=== PATIENT | female | born 1930 | race Caucasian/White ===

== ENCOUNTER 2017-02-17 07:53 | Inpatient (IN) | payer MEDICARE ==
[~2017-02-17] VITALS: Ht 157.5 cm; Wt 49.9 kg
[~2017-02-17 07:53] MED LIST: ALPR0.255 PO; AMLO5TAB2; ASPI-605; ASPI81TA2 PO; ATOR40TA PO; ATOR80TA; ATOR80TA PO; BENZ-13 PO; CARV6.252 PO; CYAN10006 IJ; DARI7.5T PO; DIGO125T20 PO; DIGO250T PO; ERGO50003 PO; ERGO500047 PO; FURO-144 PO; FURO20TA4; FURO40TA5 PO; METO-302 PO; METO-306 PO; METO25TA6 PO; OMEP20CA10; OMEP20CA10 PO; OMEP40CA37 PO; OXYB10TA4 PO; OXYB5TAB11 PO; POTA-10 PO; POTA10CA14; TRIA1CAP6 PO; TRIA50CA PO; ZOLP5TAB7 PO
--- NOTE | 2017-02-17 07:55 | NUR ---
Bibra from home due to sob. Patient is aao4, appears in no acute distress, respiration even and unlabored. Patient arrived with o2 via nc. Patient denies chest pain. Skin is warm to touch and non diaphoretic. Afebrile at this time, vss. Gowned and placed pt on tele monitor. Will cont to monitor
[2017-02-17 08:35] LABS: BASOPHILS % (AUTO) 0.2 % (0.0-2.0); EOSINOPHILS # (AUTO) 0.2 /CMM (0.0-0.7); EOSINOPHILS % (AUTO) 2.4 % (0.0-6.0); HEMATOCRIT 32 % (33-45); HEMOGLOBIN 10.4 g/dL (11.5-14.8); LYMPHOCYTES # (AUTO) 1.4 /CMM (0.8-4.8); LYMPHOCYTES % (AUTO) 14.1 % (20.0-44.0); MEAN CORPUSCULAR HEMOGLOBIN 26 PG (26.0-33.0); MEAN CORPUSCULAR HGB CONC 32 g/dl (31.0-36.0); MEAN CORPUSCULAR VOLUME 82 fL (82-100); MONOCYTES # (AUTO) 0.5 /CMM (0.1-1.30); MONOCYTES % (AUTO) 4.8 % (2.0-12.0); NEUTROPHILS # (AUTO) 7.8 /CMM (1.8-8.9); NEUTROPHILS % (AUTO) 78.5 % (43.0-81.0); PLATELET COUNT (AUTO) 279 /CMM (150-450); RED BLOOD CELL COUNT(AUTO) 3.94 MIL/uL (4.0-5.2)
[2017-02-17 08:44] LABS: CREATININE 0.9 mg/dL (0.6-1.3); POTASSIUM 3.5 mmol/L (3.5-5.1)
[2017-02-17 08:52] LABS: TROPONIN I 0.026 ng/mL (0.00-0.056)
[2017-02-17 08:57] LABS: ALBUMIN 3.2 g/dL (3.4-5.0); BILIRUBIN,DIRECT 0.1 mg/dL (0.0-0.2); BILIRUBIN,TOTAL 0.3 mg/dL (0.2-1.0); TOTAL PROTEIN, SERUM 6.7 g/dL (6.4-8.2)
[2017-02-17] MEDS ORDERED: DIGO250T PO (08:58)
[2017-02-17] MEDS ORDERED: METO-302 PO (08:58)
[2017-02-17] MEDS ORDERED: ALPR0.255 PO (08:58)
[2017-02-17] MEDS ORDERED: ASPI-991 PO (08:58)
[2017-02-17] MEDS ORDERED: FUROSEMIDE 20 MG/2 ML VIAL IV ONE (09:00)
[2017-02-17 09:03] LABS: INR 0.94 (0.87-1.13)
[2017-02-17] MEDS ORDERED: FUROSEMIDE 20 MG/2 ML VIAL ONE (09:03)
--- NOTE | 2017-02-17 10:20 | NUR ---
Report given to nurse Margarita for continuity of care
--- NOTE | 2017-02-17 10:22 | NUR ---
patient transported to [address] [place] [address]
[2017-02-17] MEDS ORDERED: HYDROCODONE/APAP 5/325MG 1 EACH TABLET PO PRN ×2 (10:30→10:45)
[2017-02-17] MEDS ORDERED: ENOXAPARIN SODIUM 30 MG/0.3 ML DISP.SYRIN SQ SCH (10:30)
[2017-02-17] MEDS ORDERED: FUROSEMIDE 40 MG/4 ML VIAL IV SCH (10:30)
[2017-02-17] MEDS ORDERED: DIGOXIN 0.25 MG TABLET PO SCH ×2 (10:30→15:19)
[2017-02-17] MEDS ORDERED: ONDANSETRON HCL/PF 4 MG/2 ML VIAL IVP PRN ×2 (10:30→10:45)
[2017-02-17] MEDS ORDERED: METOPROLOL SUCCINATE 25 MG TAB.SR.24H PO SCH (10:30)
[2017-02-17] MEDS ORDERED: ACETAMINOPHEN 325 MG TABLET PO PRN (10:30)
[2017-02-17] MEDS ORDERED: MAG HYDROX/AL HYDROX/SIMETH 30 ML UDC PO PRN ×2 (10:30→10:45)
[2017-02-17] MEDS ORDERED: ZOLPIDEM TARTRATE 5 MG TABLET PO PRN (10:30)
[2017-02-17] MEDS ORDERED: PANTOPRAZOLE 40 MG TABLET.DR PO SCH (10:30)
[2017-02-17] MEDS ORDERED: Z GUARD REMEDY 2 OZ OINT TP PRN ×2 (10:30→10:45)
[2017-02-17] MEDS ORDERED: ASPIRIN EC 81 MG TABLET.DR PO SCH (10:30)
[2017-02-17] MEDS ORDERED: MAGNESIUM HYDROXIDE 30 ML UDC PO PRN ×2 (10:30→10:45)
[2017-02-17] MEDS ORDERED: OXYBUTYNIN CHLORIDE 5 MG TABLET PO SCH (10:30)
[2017-02-17] MEDS ORDERED: ALPRAZOLAM 0.25 MG TABLET PO SCH (10:30)
--- NOTE | 2017-02-17 10:49 | NUR ---
MS RN RECEIVED ON BED, AWAKE,ALERT,ORIENTED X3,NOT IN ANY FORM OF DISTRESS, CAME IN FROM ER W/ DX OF SOB,DENIES PAIN, WAS SEEN BY DR. BEE AT ER W/ ORDERS, HEALTHCARE MANAGEMENT CONSULTANT AT BEDSIDE,WILL MONITOR PATIENT'S CONDITION.
[2017-02-17 11:15] VITALS: BP 146/70
[2017-02-17 12:00] VITALS: BP 146/70
[2017-02-17] MEDS: ACETAMINOPHEN 325 MG TABLET PO PRN (13:20)
[2017-02-17] MEDS: ENOXAPARIN SODIUM 30 MG/0.3 ML DISP.SYRIN SQ SCH (13:21)
--- NOTE | 2017-02-17 15:00 | NUR ---
MS RN DIGOXIN HELD DUE TO HR LOWER THAN 60.
--- NOTE | 2017-02-17 15:28 | NUR ---
spoke with son Clint, and was unsure if patient was consulted by a neurologist or neuro surgeon. Called Dr. David Abdi's office and commercial front load operator personal was able to look into her file and verified that patient was seen by a neurologist post hospital discharge back in October 2016.
[2017-02-17 16:00] VITALS: BP 130/66
--- NOTE | 2017-02-17 17:00 | NUR ---
MS RN DUE MEDS GIVEN,TOLERATED WELL.
--- NOTE | 2017-02-17 18:28 | NUR ---
MS RN ON BED,NO DISTRESS NOTED,ALL NEEDS ATTENDED.
--- NOTE | 2017-02-17 20:11 | NUR ---
TELE/RN PATIENT AWAKE, ALERT, ORIENTED, COMFORTABLE, NO C/O PAIN, NO DISTRESS/SOB NOTED, WILL MONITOR.
[2017-02-17 20:24] VITALS: BP 137/72
[2017-02-17] MEDS: ZOLPIDEM TARTRATE 5 MG TABLET PO PRN (22:05)
--- NOTE | 2017-02-17 23:10 | NUR ---
TELE/RN PATIENT IS SLEEPING AT THIS TIME, APPEAR COMFORTABLE, BREATHING EVEN AND UNLABORED, CALL LIGHT IN REACH. WILL CONTINUE TO MONITOR.
[2017-02-18] VITALS (8 sets, daily range): BP systolic 120–153; BP diastolic 61–81
--- NOTE | 2017-02-18 | NUR ---
TELE/RN DR. IL WAS MADE AWARE ABOUT THE 2.[address] LI HE WILL ORDER CARDIOLOGY CONSULT FOR A.M.
[2017-02-18] MEDS: ACETAMINOPHEN 325 MG TABLET PO PRN ×2 (01:44→22:34)
--- NOTE | 2017-02-18 06:20 | NUR ---
TELE/RN PATIENT IS SLEEPING, AROUSABLE, APPEAR COMFORTABLE, ALL NEEDS ATTENDED AT THIS TIME. WILL CONTINUE TO MONITOR.
--- NOTE | 2017-02-18 08:00 | NUR ---
MS RN NOTES PATIENT IN BED RESTING NO SOB OR ACUTE DISTRESS NOTED. IV INTACT PATENT. BED IN LOW LOCKED POSITION. CALL LIGHT WITHIN REACH. WILL CONTINUE TO MONITOR.
[2017-02-18] MEDS: ALPRAZOLAM 0.25 MG TABLET PO SCH (08:18)
[2017-02-18] MEDS: OXYBUTYNIN CHLORIDE 5 MG TABLET PO SCH (08:19)
[2017-02-18] MEDS: PANTOPRAZOLE 40 MG TABLET.DR PO SCH (08:19)
[2017-02-18] MEDS: ASPIRIN EC 81 MG TABLET.DR PO SCH (08:20)
[2017-02-18] MEDS: ENOXAPARIN SODIUM 30 MG/0.3 ML DISP.SYRIN SQ SCH (08:21)
[2017-02-18] MEDS ORDERED: ATORVASTATIN 40 MG TABLET PO SCH (09:00)
[2017-02-18] MEDS: METOPROLOL SUCCINATE 25 MG TAB.SR.24H PO SCH (09:00)
[2017-02-18] MEDS ORDERED: FUROSEMIDE 40 MG/4 ML VIAL IV SCH (09:00)
--- NOTE | 2017-02-18 10:00 | NUR ---
CRAFT ARTIST NOTES DR. ASCENCIO INFORMED OF PATIENTS EPISODES OF BRADYCARDIA. PATIENTS PULSE AT 78 AT THIS MOMENT. NO SIGNS OF DISTRESS NOTED. DENIES ANY DIZZINESS OR WEAKNESS. DR. BAHENA WILL EVALUATE PATIENT.
--- NOTE | 2017-02-18 11:00 | NUR ---
LEASE OUT MAN NOTES PATIENT SEEN AND EVALUATED BY DR. BAHENA ORDERS NOTED AND CARRIED OUT.
--- NOTE | 2017-02-18 18:10 | NUR ---
MS RN NOTES PATIENT IN BED RESTING NO SOB OR ACUTE DISTRESS NOTED. ALL DUE MEDICATIONS GIVEN. ALL NEEDS MET. IV INTACT PATENT ON RIGHT HAND. PATIENT ON 1 LITER OXYGEN VIA NASAL CANULA. WILL ENDORSE TO PM SHIFT MANDEEP.
--- NOTE | 2017-02-18 19:30 | NUR ---
PRODUCT MANAGEMENT INTERNSHIP NOTES RECEIVED PT IN BED, AWAKE, ALERT , WATCHING TV. ON ROOM AIR. NO SOB NOTED. DENIES ANY PAIN WHEN ASKED. AMBULATORY WITH WALKER. RIGHT ARM IV SALINE LOCK NOTED, INTACT AND PATENT. ON TELE MONITOR. CLEAN AND DRY. WILL CONTINUE TO MONITOR.
[2017-02-18] MEDS: ZOLPIDEM TARTRATE 5 MG TABLET PO PRN (21:46)
[2017-02-19 04:30] VITALS: BP 128/71
--- NOTE | 2017-02-19 07:01 | NUR ---
WHEEL INSPECTOR NOTES PT REMAINS STABLE THROUGHOUT THE NIGHT. PT ASLEEP FOR 5 HOURS. NURSING CARE RENDERED. ALL NEEDS ATTENDED PROMPTLY WILL CONTINUE TO MONITOR. Addendum: 02/19/17 at 0702 by ANDREW ARRIETA RN WILL ENDORSE PT IN AM SHIFT. DR. BAHENA CAME AND SEEN PT AND DISCONTINUE PT ON TELE MONITOR.
--- NOTE | 2017-02-19 07:30 | NUR ---
RN MS NOTES PT IN BED, AWAKE, ALERT AND ORIENTED, NO COMPLAINT OF PAIN, BREATHNG PATTERN NORMAL AND NOT LABORED, CALL LIGHT WITHIN REACH, ASSISTED TO BATHROOM NEEDED, NEEDS ATTENDED.
[2017-02-19 08:00] VITALS: BP 133/63
[2017-02-19] MEDS: OXYBUTYNIN CHLORIDE 5 MG TABLET PO SCH (08:29)
[2017-02-19] MEDS: PANTOPRAZOLE 40 MG TABLET.DR PO SCH (08:29)
[2017-02-19] MEDS: ALPRAZOLAM 0.25 MG TABLET PO SCH (08:29)
[2017-02-19] MEDS: ASPIRIN EC 81 MG TABLET.DR PO SCH (08:29)
[2017-02-19 08:30] VITALS: BP 133/63
[2017-02-19] MEDS: METOPROLOL SUCCINATE 25 MG TAB.SR.24H PO SCH (08:30)
[2017-02-19] MEDS: ENOXAPARIN SODIUM 30 MG/0.3 ML DISP.SYRIN SQ SCH (08:34)
--- NOTE | 2017-02-19 13:00 | NUR ---
RN MS NOTES PT IN BED, AWAKE, ALERT AND ORIENTED, NO COMPLAINT OF PAIN, NO SHORTNESS OF BREATH, TOLERATING ROOM AIR WELL, AMBULATES WITH A WALKER WITH STEADY GAIT, SEEN BY DR. BEE, DISCHARGE ORDER GIVEN, MEDICATION AND DISCHARGE INSTRUCTIONS GIVEN TO PT, PT TO SEE HER VETERINARY PATHOLOGIST AND PRIMARY CARE PHYSICIAN IN 1 WEEK, VERBALIZED UNDERSTANDING, BELONGINGS ACCOUNTED FOR, PICKED UP BY FAMILY MEMBER, ASSISTED TO HOSPITAL LOBBY VIA WHEELCHAIR, LEFT IN STABLE CONDITION.
== END 2017-02-19 13:05 | disposition home or self-care (01) | DRG 291 ==
LOC: ER 07:55 → MERGE 10:28 → TELE 10:28 → MED 02-19 07:24
PROVIDERS: ADMIT Internal Medicine; ATTEND Internal Medicine
DX: I11.0 Hypertensive heart disease with heart failure (principal); J96.01 Acute respiratory failure with hypoxia; E55.9 Vitamin D deficiency, unspecified; I50.33 Acute on chronic diastolic (congestive) heart failure; I48.91 Unspecified atrial fibrillation; E11.9 Type 2 diabetes mellitus without complications; E78.5 Hyperlipidemia, unspecified; F32.9 Major depressive disorder, single episode, unspecified; I25.2 Old myocardial infarction; I49.5 Sick sinus syndrome; Z79.82 Long term (current) use of aspirin; Z96.653 Presence of artificial knee joint, bilateral
CPT/HCPCS: 36415; 71010-TC; 80048-TC; 80076-TC; 80162-TC; 83605-TC; 83880; 84443-TC; 84484-TC; 85025-TC; 85730-TC; 87040-TC; 87081-TC; 92521; 97001-TC; 97003-TC; A4606; J1650; J1940; Z7610

== ENCOUNTER 2017-09-25 17:47 | Emergency (ER) | payer MEDICARE ==
[~2017-09-25] VITALS: Ht 162.6 cm; Wt 63.5 kg
[2017-09-25 17:47] VITALS: BP 148/79
[~2017-09-25 17:47] MED LIST changes: +ASPI-991 PO; -CYAN10006 IJ; -ERGO500047 PO; -METO25TA6 PO; -TRIA1CAP6 PO
[2017-09-25] MEDS ORDERED: ACETAMINOPHEN 325 MG TABLET PO ONE (18:30)
[2017-09-25] MEDS ORDERED: ACETAMINOPHEN 325 MG TABLET ONE (18:31)
--- NOTE | 2017-09-25 18:52 | NUR ---
PT TO XRAY
== END 2017-09-25 20:49 | disposition home or self-care (01) ==
LOC: ER 17:49
DX: M25.551 Pain in right hip (principal); M79.661 Pain in right lower leg; I10 Essential (primary) hypertension; I48.91 Unspecified atrial fibrillation; K21.9 Gastro-esophageal reflux disease without esophagitis; Z79.82 Long term (current) use of aspirin; Z96.641 Presence of right artificial hip joint; Z96.651 Presence of right artificial knee joint; W01.0XXA Fall on same level from slipping, tripping and stumbling without subsequent striking against object, initial encounter; Y93.01 Activity, walking, marching and hiking; Y92.89 Other specified places as the place of occurrence of the external cause; Y99.8 Other external cause status
CPT/HCPCS: 73502; 73552; 73590-TC; A4606; Z7610

== ENCOUNTER 2017-12-08 14:03 | Emergency (ER) | payer MEDICARE ==
[~2017-12-08] VITALS: Ht 152.4 cm; Wt 54.4 kg
[~2017-12-08 14:03] MED LIST changes: +ASPI-1152 PO; +ASPI-1169 PO; -ASPI-991 PO; -ASPI81TA2 PO; +ERGO500014 PO; -ERGO50003 PO; -METO-302 PO; -METO-306 PO; +METO-356 PO; +METO-358 PO; -ZOLP5TAB7 PO; +ZOLP5TAB8 PO
--- NOTE | 2017-12-08 14:23 | NUR ---
[facility] TRIPPED AND FELL. NO KO,. SUSTAINED LEFT FIFITH FINGER SKIN TEAR. VSS.
[2017-12-08] MEDS ORDERED: LIDOCAINE 2% 20 ML MDV ONE (16:40)
--- NOTE | 2017-12-08 16:42 | NUR ---
CALLED PATIENTS SONCAROLINA .
--- NOTE | 2017-12-08 17:22 | NUR ---
RECALLED PATIENTS SON,[place] . LEFT A VOICEMAIL.
[2017-12-08 18:01] VITALS: BP 124/88
--- NOTE | 2017-12-08 18:01 | NUR ---
PTS'S SON AT BEDSIDE
== END 2017-12-08 18:21 | disposition home or self-care (01) ==
LOC: ER 14:07
DX: S62.637B Displaced fracture of distal phalanx of left little finger, initial encounter for open fracture (principal); S61.217A Laceration without foreign body of left little finger without damage to nail, initial encounter; I10 Essential (primary) hypertension; I48.91 Unspecified atrial fibrillation; K21.9 Gastro-esophageal reflux disease without esophagitis; Z79.82 Long term (current) use of aspirin; W01.0XXA Fall on same level from slipping, tripping and stumbling without subsequent striking against object, initial encounter; Y93.89 Activity, other specified; Y92.89 Other specified places as the place of occurrence of the external cause; Y99.8 Other external cause status
CPT/HCPCS: 12002; 73140; 99284; A4606; A6402; A6403; J3490; Z7610

== ENCOUNTER 2018-02-27 09:19 | Inpatient (IN) | payer MEDICARE ==
[~2018-02-27] VITALS: Ht 160 cm; Wt 55.8 kg
[~2018-02-27 09:19] MED LIST changes: -AMLO5TAB2; +AMLO5TAB7; -FURO20TA4; +FURO20TA4 PO; -POTA10CA14; +POTA10CA14 PO
--- NOTE | 2018-02-27 09:20 | NUR ---
BB RA 39 FROM B&C ALTERED C/O LOW BP SBP80S X1 HR ANVILSMITH GIVEN 250 CC NS IN FIELD. PER DR. GAONA, CONTINUE INFUSING REST OF 1L BAG FROM EN ROUTE. BS IN FIELD 307. PATIENT ALTERED, RESPONDS TO PAINFUL STIMULI. BREATHING EVEN AND UNLABORED, BUT TACHYPNIC. VITALS STABLE AT THIS TIME. SAFETY AND COMFORT MEASURES IN PLACE. IV INTACT AND PATENT ON LFA, 20G. AWAITING MD ORDERS.
--- NOTE | 2018-02-27 09:40 | NUR ---
URINE OBTAINED VIA STRAIGHT CATH AND SENT TO LAB PER MD ORDERS.
[2018-02-27] MEDS ORDERED: INSU100V3 SQ (09:47)
[2018-02-27] MEDS ORDERED: DOCU-270 PO (09:47)
[2018-02-27] MEDS ORDERED: ACET-868 PO (09:47)
[2018-02-27] MEDS ORDERED: OXYB5TAB PO (09:47)
[2018-02-27] MEDS ORDERED: POLY17PO4 PO (09:47)
[2018-02-27] MEDS ORDERED: ATOR10TA PO (09:47)
[2018-02-27] MEDS ORDERED: GLIM1TAB2 PO (09:47)
[2018-02-27] MEDS ORDERED: ASPI-1152 PO (09:47)
[2018-02-27] MEDS ORDERED: HYDR-3026 PO (09:47)
[2018-02-27] MEDS ORDERED: MULT-447 PO (09:47)
[2018-02-27] MEDS ORDERED: ACETAMINOPHEN 650 MG/SUPP.RECT RC ONE ×2 (09:47→10:00)
--- NOTE | 2018-02-27 09:50 | NUR ---
SECOND IV STARTED ON RFA, 18G.
[2018-02-27 09:58] LABS: BASOPHILS % (AUTO) 0.4 % (0.0-2.0); EOSINOPHILS % (AUTO) 0.8 % (0.0-6.0); HEMATOCRIT 33 % (33-45); HEMOGLOBIN 10.8 g/dL (11.5-14.8); LYMPHOCYTES # (AUTO) 1.1 /CMM (0.8-4.8); LYMPHOCYTES % (AUTO) 9.2 % (20.0-44.0); MEAN CORPUSCULAR HGB CONC 33 g/dl (31.0-36.0); MEAN CORPUSCULAR VOLUME 80 fL (82-100); MONOCYTES # (AUTO) 0.5 /CMM (0.1-1.30); MONOCYTES % (AUTO) 3.9 % (2.0-12.0); NEUTROPHILS # (AUTO) 9.9 /CMM (1.8-8.9); NEUTROPHILS % (AUTO) 85.7 % (43.0-81.0); PLATELET COUNT (AUTO) 309 /CMM (150-450); RDW COEFFICIENT OF VARIATION 15.4 (11.5-15.0); RED BLOOD CELL COUNT(AUTO) 4.09 MIL/uL (4.0-5.2); WHITE BLOOD COUNT (AUTO) 11.5 K/uL (4.3-11.0)
[2018-02-27] MEDS ORDERED: VANCOMYCIN 1 GM in IV D5W 250 ML IV ONE (10:00)
[2018-02-27] MEDS ORDERED: IV NS 0.9% 1,000 ML BAG IV ONE (10:00)
[2018-02-27] MEDS ORDERED: PIPERACILLIN /TAZOBACTAM 3.375 G in IV D5W 50 ML IV ONE (10:00)
[2018-02-27 10:02] LABS: CALCIUM, SERUM 8.9 mg/dL (8.5-10.1); CARBON DIOXIDE 26 mmol/L (21-32); CHLORIDE 106 mmol/L (98-107); CREATININE 1.2 mg/dL (0.6-1.3); GLUCOSE 277 mg/dL (74-106); POTASSIUM 3.5 mmol/L (3.5-5.1); SODIUM SERUM 142 mmol/L (136-145); UREA NITROGEN, BLOOD 21 mg/dL (7-18)
[2018-02-27 10:06] LABS: INR 0.99 (0.85-1.15)
[2018-02-27 10:07] LABS: ALANINE AMINOTRANSFERASE 15 U/L (12-78); ALBUMIN 2.2 g/dL (3.4-5.0); ALKALINE PHOSPHATASE 50 U/L (46-116); ASPARTATE AMINOTRANSFERASE 11 U/L (15-37); BILIRUBIN,DIRECT 0.1 mg/dL (0.0-0.2); BILIRUBIN,TOTAL 0.3 mg/dL (0.2-1.0); TOTAL PROTEIN, SERUM 6.2 g/dL (6.4-8.2)
[2018-02-27 10:10] LABS: TROPONIN I < 0.017 ng/mL (0.00-0.056)
--- NOTE | 2018-02-27 10:21 | NUR ---
PATIENT TAKEN TO CT VIA STRETCHER.
--- NOTE | 2018-02-27 10:35 | NUR ---
PATIENT RETURNED FROM CT IN STABLE CONDITION.
[2018-02-27 10:38] LABS: APPEARANCE,URINE Clear (CLEAR); BILIRUBIN,URINE Negative (NEGATIVE); BLOOD, URINE Negative Ery/uL (NEGATIVE); COLOR,URINE Yellow (YELLOW); KETONES,URINE Negative (NEGATIVE); LEUKOCYTE ESTERASE ,URINE Negative (NEGATIVE); NITRITE, URINE Negative (NEGATIVE); PROTEIN,URINE Negative (NEGATIVE); UGLUCOSE Negative (NEGATIVE); UROBILINOGEN,URINE 0.2 EU/dL (0.2)
[2018-02-27 10:46] LABS: BACTERIA,URINE None seen /HPF (None Seen); RBC,URINE 0-2 /HPF (0-2); SQUAMOUS EPITHELIAL CELL,UR Few /HPF (None Seen); WBC,URINE 0-3 /HPF (0-3)
--- NOTE | 2018-02-27 11:19 | NUR ---
PT IS ASSIGNED TO [facility]#: [id number], PT IS DIAGNOSED WITH SEPSIS/AMS, AND SHERYL VILLAFANA IS THE ACCEPTING MD/RN BEHAVIORAL HEALTH.
--- NOTE | 2018-02-27 11:38 | NUR ---
REPORT GIVEN TO ALESSANDRO CARRASCO FOR MANDEEP UPON ADMISSION.
[2018-02-27] MEDS ORDERED: IV NS 0.9% 1,000 ML IV PRN (11:53)
[2018-02-27] MEDS ORDERED: MAGNESIUM HYDROXIDE 30 ML UDC PO PRN (12:00)
[2018-02-27] MEDS ORDERED: ONDANSETRON HCL/PF 4 MG/2 ML VIAL IVP PRN (12:00)
[2018-02-27] MEDS ORDERED: hydrOXYzine HCL SYRUP 10 MG/5 ML UDC PO PRN (12:00)
[2018-02-27] MEDS ORDERED: HYDROCODONE/APAP 5/325MG 1 EACH TABLET PO PRN (12:00)
[2018-02-27] MEDS ORDERED: TEMAZEPAM 15 MG CAPSULE PO PRN (12:00)
[2018-02-27] MEDS ORDERED: MAG HYDROX/AL HYDROX/SIMETH 30 ML UDC PO PRN (12:00)
[2018-02-27] MEDS ORDERED: ACETAMINOPHEN 325 MG TABLET PO PRN ×2 (12:00)
--- NOTE | 2018-02-27 12:00 | NUR ---
PATIENT TRANSPORTED TO [facility] VIA ACLS PROTOCOL. RNALESSANDRO TO PROVIDE MANDEEP.
--- NOTE | 2018-02-27 12:00 | NUR ---
TELE/MANAGER COST PATIENT ADMITTED FROM ER FOR DIAGNOSIS OF SEPSIS. A/O X 1, LETHARGIC, AROUSABLE TO TOUCH. NO SIGNS OF ACUTE DISTRESS. NO COMPLAIN OF PAIN OR DISCOMFORT. SATURATION 95% ON ROOM AIR. INCONTINENT OF BOWEL AND BLADDER. NO OPEN WOUND NOTED, NOTED WITH BILATERAL LOWER EXTREMITIES DISCOLORATION. IV SITE RIGHT FOREARM G 18 AND LEFT FOREARM G 20 INTACT AND FLUSHING WELL. NO S/S OF REDNESS, INFILTRATION, SWELLING NOTED AT IV SITES. ALL NEEDS ATTENDED TO. CALL LIGHT WITHIN REACH. WILL CONTINUE TO MONITOR TO ENSURE SAFETY.
[2018-02-27] MEDS ORDERED: FEE PK DOSING 1 MIN EA MC ONE (12:08)
[2018-02-27] MEDS ORDERED: DEXTROSE 50%-WATER 50 ML DISP.SYRIN IV PRN (12:30)
[2018-02-27] MEDS ORDERED: PIPERACILLIN /TAZOBACTAM 3.375 G in IV D5W 100 ML IV SCH (13:00)
[2018-02-27 13:01] VITALS: BP 98/55
[2018-02-27 14:46] LABS: ABG PCO2 38.4 mmHg (35.0-45.0); ABG PH 7.463 (7.350-7.450); ABG PO2 72.7 mmHg (75.0-100.0); COHb 0.3 % (0.5-1.5); MetHb 0.5 % (0.0-1.5); O2Hb 93.2 % (94.0-97.0); SITE, ABG Right Radial; VENT MODE, BG ROOM AIR
[2018-02-27 16:00] VITALS: BP 161/81
[2018-02-27] MEDS: BLOOD SUGAR DIAGNOSTIC 1 EACH STRIP IN SCH ×2 (16:58→21:38)
[2018-02-27] MEDS: PIPERACILLIN /TAZOBACTAM 2.25 G in IV D5W 50 ML IV SCH (16:58)
--- NOTE | 2018-02-27 18:22 | NUR ---
MS/RN CLOSING NOTE PATIENT IN BED IN STABLE CONDITION. A/O X 1. NO SIGNS OF ACUTE DISTRESS. NO COMPLAIN OF PAIN OR DISCOMFORT. ALL NEEDS ATTENDED TO. CALL LIGHT WITHIN REACH. WILL ENDORSE TO NEXT SHIFT FOR CONTINUITY OF CARE.
--- NOTE | 2018-02-27 19:40 | NUR ---
MS RN INITIAL NOTE PT IS IN BED AWAKE AND ALERT, CONFUSED. BREATHING EVENLY AND UNLABORED ON RA, NO SIGNS OF SOB OR DISTRESS. IV ACCESS IS INTACT AND PATENT. NO SIGNS OF DISTRESS AT THIS TIME. BED IS IN LOW AND LOCKED POSITION, BED ALARM IS ON. WILL CONTINUE TO MONITOR PT
[2018-02-27 20:00] VITALS: BP 131/81
[2018-02-27] MEDS: DOCUSATE SODIUM 100 MG CAPSULE PO SCH (21:39)
[2018-02-27] MEDS ORDERED: ATORVASTATIN 10 MG TABLET PO SCH (22:00)
[2018-02-27] MEDS ORDERED: IV D5/0.45 NACL 1,000 ML IV PRN (22:30)
[2018-02-28] MEDS: PIPERACILLIN /TAZOBACTAM 2.25 G in IV D5W 50 ML IV SCH ×5 (00:20→23:00)
[2018-02-28] MEDS: ALBUTEROL FS 2.5 MG/0.5 ML VIAL.NEB NEB PRN (02:10)
[2018-02-28] MEDS: IPRATROPIUM NEB FS 0.5 MG/2.5 ML AMPUL.NEB NEB PRN (02:10)
[2018-02-28] MEDS: BLOOD SUGAR DIAGNOSTIC 1 EACH STRIP IN SCH ×4 (05:51→21:52)
[2018-02-28] MEDS: INSULIN REGULAR, HUMAN 100 UNIT/ML 3 ML VIAL SQ PRN ×3 (05:57→22:08)
[2018-02-28 06:16] LABS: BASOPHILS % (AUTO) 0.4 % (0.0-2.0); HEMATOCRIT 34 % (33-45); HEMOGLOBIN 11.1 g/dL (11.5-14.8); MEAN CORPUSCULAR HGB CONC 33 g/dl (31.0-36.0); MEAN CORPUSCULAR VOLUME 80 fL (82-100); MONOCYTES # (AUTO) 0.4 /CMM (0.1-1.30); NEUTROPHILS # (AUTO) 11.1 /CMM (1.8-8.9); NEUTROPHILS % (AUTO) 87.6 % (43.0-81.0); PLATELET COUNT (AUTO) 343 /CMM (150-450); RDW COEFFICIENT OF VARIATION 15.7 (11.5-15.0); RED BLOOD CELL COUNT(AUTO) 4.28 MIL/uL (4.0-5.2); WHITE BLOOD COUNT (AUTO) 12.6 K/uL (4.3-11.0)
--- NOTE | 2018-02-28 06:36 | NUR ---
MS RN CLOSING NOTE PT IS IN BED AWAKE AND ALERT, CONFUSED. CONTINUES TO PULL ON HER GOWN AND REMOVE IT. NO SIGNS OF SOB OR DISTRESS, BREATHING EVENLY AND UNLABORED ON RA. NO SIGNS OF DISTRESS. BED IS IN LOW AND LOCKED POSITION, BED ALARM IS ON. WILL ENDORSE TO DAYSHIFT
[2018-02-28 06:39] LABS: TROPONIN I < 0.017 ng/mL (0.00-0.056)
[2018-02-28 06:46] LABS: ALANINE AMINOTRANSFERASE 16 U/L (12-78); ALBUMIN 2.4 g/dL (3.4-5.0); ALKALINE PHOSPHATASE 56 U/L (46-116); ASPARTATE AMINOTRANSFERASE 20 U/L (15-37); BILIRUBIN,TOTAL 0.5 mg/dL (0.2-1.0); CALCIUM, SERUM 9.4 mg/dL (8.5-10.1); CARBON DIOXIDE 28 mmol/L (21-32); CHLORIDE 100 mmol/L (98-107); CREATININE 0.9 mg/dL (0.6-1.3); GLUCOSE 185 mg/dL (74-106); MAGNESIUM 1.4 mg/dL (1.8-2.4); PHOSPHORUS 2.8 mg/dL (2.5-4.9); POTASSIUM 3.2 mmol/L (3.5-5.1); SODIUM SERUM 138 mmol/L (136-145); TOTAL PROTEIN, SERUM 6.6 g/dL (6.4-8.2); UREA NITROGEN, BLOOD 14 mg/dL (7-18)
--- NOTE | 2018-02-28 07:40 | NUR ---
RN OPENING NOTES RECEIVED PT. PT IS STABLE AND RESTING IN BED. NO S/S OF RESP DISTRESS OR SOB. UPON AUSCULTATION, PT BREATHING IS DIMINISHED. PT IS CONFUSED, ABLE TO RESPOND, HOWEVER RESPONDS INAPPROPRIATELY. IV ACCESS LOCATED ON BOTH LFA 20G SL AND RFA 18G INFUSING D5 1/2 AT 75 ML/HR. [facility] AND CONSULT WITH INFECTIOUS DISEASE CURRENTLY PENDING. SAFETY MEASURES IN PLACE, CALL LIGHT WITHIN REACH. WILL CONTINUE TO MONITOR.
[2018-02-28 07:51] LABS: CHOLESTEROL 169 mg/dL (<200); HDL CHOLESTEROL 69 mg/dL (40-60); LDL 98 mg/dL (0-99); TRIGLYCERIDES 89 mg/dL (30-150)
[2018-02-28 08:00] VITALS: BP 145/80
[2018-02-28 08:21] VITALS: BP 145/80
[2018-02-28] MEDS: MULTIVITAMINS,THERAGRAN 1 UDTAB TABLET PO SCH (08:39)
[2018-02-28] MEDS: OXYBUTYNIN CHLORIDE ER 5 MG TAB PO SCH (08:39)
[2018-02-28] MEDS: ASPIRIN EC 81 MG TABLET.DR PO SCH (08:39)
[2018-02-28] MEDS: METOPROLOL SUCCINATE 25 MG TAB.SR.24H PO SCH (08:39)
[2018-02-28] MEDS ORDERED: PANTOPRAZOLE 40 MG VIAL IV SCH (09:00)
--- NOTE | 2018-02-28 09:00 | NUR ---
RN NOTES AM PO MEDICATIONS CRUSHED AND GIVEN WITH APPLESAUCE, PT ABLE TO SWALLOW WELL AND DID NOT EXPERIENCE ANY ASPIRATION. WILL CONTINUE TO MONITOR.
[2018-02-28] MEDS ORDERED: IV D5/0.45 NACL 1,000 ML IV PRN (09:30)
[2018-02-28] MEDS: POTASSIUM CHLORIDE 20 MEQ TAB.PRT.SR PO SCH ×2 (09:53→10:36)
[2018-02-28] MEDS: Magnesium 1GM/D5W 100ML PREMIX 100 ML IV SCH ×4 (09:53→12:37)
[2018-02-28] MEDS ORDERED: VANCOMYCIN 0.75 GM in IV D5W 250 ML IV SCH (10:00)
--- NOTE | 2018-02-28 10:30 | NUR ---
RN NOTES CONTACTED PHARMACY TO RECEIVE VANCOMYCIN IVPB. AWAITING DELIVERY FOR MEDICATION ADMIN. WILL CONTINUE TO MONITOR.
[2018-02-28 16:01] VITALS: BP 102/68
[2018-02-28] MEDS: MEGESTROL ACETATE SUSP 400 MG/10 ML UDC PO SCH (17:06)
--- NOTE | 2018-02-28 18:46 | NUR ---
RN CLOSING NOTE PT IN BED SLEEPING. NO S/S OF RESP DISTRESS OR SOB, HOWEVER PT HAS NON-PRODUCTIVE COUGH. PT DOES NOT APPEAR TO BE IN PAIN. PT CONTINUES TO ATTEMPT TO GET OUT OF BED DESPITE FREQUENT REORIENTATION. PT EVAL TO OCCUR ON 03/01/18. ALL PT NEEDS ANTICIPATED AND MET. SAFETY MEASURES IN PLACE, CALL LIGHT WITHIN REACH. WILL ENDORSE TO PROCESSING SUPERVISOR FOR MANDEEP.
--- NOTE | 2018-02-28 19:50 | NUR ---
RN INITIAL NOTES: RECEIVED REPORT FORM ADELIA CARRASCO. PT IN BED, AWAKE, CONFUSED, JOHANNY RA, RESPIRATION EVEN AND UNLABORED, NO FACIAL GRIMACE NOTED. BOTH IV ACCESS NOTED TO BE LEAKING, REMOVED AND APPLIED PRESSURED DRESSING. BLE OFFLOADED. SAFETY PRECAUTIONS FOR FALL INITIATED CALL LIGHT IN REACH, WILL CONTINUE TO MONITOR
[2018-02-28 20:00] VITALS: BP 140/89
[2018-02-28 20:38] VITALS: BP 140/89
--- NOTE | 2018-02-28 22:08 | NUR ---
ACCUCHECK 157: BLOOD SUGAR 157, 2UNITS OF INSULIN GIVEN P[ER SLIDING SCALE, PT ON D5 1/2NS AT 75ML/HR, ON PUREE CARDIAC DIET
[2018-02-28] MEDS: DOCUSATE SODIUM 100 MG CAPSULE PO SCH (22:24)
--- NOTE | 2018-02-28 22:24 | NUR ---
RN NOTES: ASSISTED PT IN FEEDING AND TAKING THE MEDS, ASPIRATION PROTOCOL FOLLOWED, SUCTION SET UP SECURED, NO ASPIRATION NOTED DURING AND AFTER EATING,
--- NOTE | 2018-03-01 01:20 | NUR ---
RN NOTES: PT NOTED TO BE HYPERVENTILATING AND HAS WHEEZING, STOPPED IVF AND CONTACTED RT TO GIVE PRN ATROVENT BREATHING TX, RR 25, SPO2 93% ON RA HR 111
[2018-03-01] MEDS: ALBUTEROL FS 2.5 MG/0.5 ML VIAL.NEB NEB PRN (01:36)
[2018-03-01] MEDS: IPRATROPIUM NEB FS 0.5 MG/2.5 ML AMPUL.NEB NEB PRN (01:36)
--- NOTE | 2018-03-01 02:09 | NUR ---
RN NOTES: PT BEEN PULLING OUT IV ACCESS MORE THAN 6TIMES ALREADY DESPITE COVERING WITH KERLIX, MYA BANDAGE AND BROWN SLEEVE, BITING THE IV ACCESS, TRYING TO GET OUT OF BED AND SCRATCH TURKEY EGG GATHERER AND SATELLITE DISH REPAIRER, INFORMED EPIC INTEGRATED CIRCUIT DESIGN ENGINEER, WITH ORDERS FOR BILATERAL SOFT MITTENS, AND IF POSSIBLE 1:1 SITTER. INFORMED THE MD THAT AT THIS TIME THERE'S NO AVAILABLE SITTER, SO MITTENS WILL BE PLACED, THEN IN THE DAY SHIFT THERE WILL BE ASSIGNED SITTER THEN MITTENS WILL BE TAKEN OFF.
--- NOTE | 2018-03-01 03:03 | NUR ---
RN NOTES: RESTRAINT PROTOCOL INITIATED AND FOLLOWED, BILATERAL RADIAL PULSES PATENT AND PALPABLE, WITH GOOD CAPILLARY REFILL NOTED, PT ABLE TO MOVE AND WIGGLE ARMS AND HANDS, RELEASE OF RESTRAINT PROVIDED, BUT SOON IT WAS TAKEN OFF FOR A BREAK, PT WILL TRY REMOVING IV AND SCRATCH STAFF, WILL CONTINUE MONITORING PT
[2018-03-01] MEDS: PIPERACILLIN /TAZOBACTAM 2.25 G in IV D5W 50 ML IV SCH ×4 (05:11→23:05)
[2018-03-01] MEDS: BLOOD SUGAR DIAGNOSTIC 1 EACH STRIP IN SCH ×4 (06:03→21:29)
[2018-03-01] MEDS: INSULIN REGULAR, HUMAN 100 UNIT/ML 3 ML VIAL SQ PRN ×3 (06:04→21:49)
--- NOTE | 2018-03-01 06:05 | NUR ---
ACCU CHECK: BLOOD SUGAR 189, 3UNITS OF INSULIN GIVEN PER SLIDING SCALE, PT ON IVF D5 1/2 NS TOLERATING WELL
[2018-03-01 06:51] LABS: BASOPHILS % (AUTO) 0.2 % (0.0-2.0); EOSINOPHILS % (AUTO) 1.5 % (0.0-6.0); HEMATOCRIT 31 % (33-45); HEMOGLOBIN 10.3 g/dL (11.5-14.8); LYMPHOCYTES # (AUTO) 0.6 /CMM (0.8-4.8); LYMPHOCYTES % (AUTO) 6.7 % (20.0-44.0); MEAN CORPUSCULAR HGB CONC 34 g/dl (31.0-36.0); MEAN CORPUSCULAR VOLUME 79 fL (82-100); MONOCYTES # (AUTO) 0.5 /CMM (0.1-1.30); NEUTROPHILS # (AUTO) 7.8 /CMM (1.8-8.9); NEUTROPHILS % (AUTO) 86.6 % (43.0-81.0); PLATELET COUNT (AUTO) 281 /CMM (150-450); RDW COEFFICIENT OF VARIATION 15.5 (11.5-15.0); RED BLOOD CELL COUNT(AUTO) 3.92 MIL/uL (4.0-5.2)
--- NOTE | 2018-03-01 06:53 | NUR ---
RN CLOSING NOTES: PT IN BED, REMAINS CONFUSED, ON RA. IV ACCESS REMAINS PATENT AND FLUSHING WELL INFUSING WITH D5 1/2 NS AT 75ML/HR. BILATERAL SOFT MITTENS IN PLACED, RESTRAINT PROTOCOL FOLLOWED, PT ABLE TO MOVE AND WIGGLE ARMS ANDS HANDS, WITH GOOD CAPILLARY REFILL NOTED, RADIAL PULSES INTACT, PALPABLE. NO SITTER AVAILABLE TODAY, BUT ONCE THERE WILL BE ASSIGNED SITTER IN THE ROOM, MITTENS WILL BE TAKEN OFF AND DC. VS REMAINS STABLE, NEEDS ATTENDED. SAFETY PRECAUTIONS FOR FALL REMAINS ENGAGED, CALL LIGHT IN REACH, WILL ENDORSE TO DAY RN FOR MANDEEP.
[2018-03-01 07:05] LABS: CALCIUM, SERUM 8.9 mg/dL (8.5-10.1); CARBON DIOXIDE 30 mmol/L (21-32); CHLORIDE 103 mmol/L (98-107); CREATININE 0.9 mg/dL (0.6-1.3); GLUCOSE 184 mg/dL (74-106); SODIUM SERUM 140 mmol/L (136-145); UREA NITROGEN, BLOOD 13 mg/dL (7-18)
--- NOTE | 2018-03-01 07:20 | NUR ---
RN NOTES PT IS LAYING DOWN IN BED, RESTING COMFORTABLY. PT ON RA, RESPIRATIONS ARE EVEN AND UNLABORED. IV ON RFA, INTACT AND RUNNING D51/2 NS @ 75ML/HR. RESTRAINTS MITTENS ARE ON HANDS. PT SHOWS NO SIGNS OF DISTRESS. SAFETY MEASURES ARE IN PLACE, CALL LIGHT IS IN REACH. WILL CONTINUE TO MONITOR.
[2018-03-01 08:00] VITALS: BP 120/78
[2018-03-01] MEDS ORDERED: VANCOMYCIN 1 GM in IV D5W 250 ML IV SCH (08:00)
[2018-03-01] MEDS: METOPROLOL SUCCINATE 25 MG TAB.SR.24H PO SCH (08:13)
[2018-03-01] MEDS: ASPIRIN EC 81 MG TABLET.DR PO SCH (08:13)
[2018-03-01] MEDS: MEGESTROL ACETATE SUSP 400 MG/10 ML UDC PO SCH ×2 (08:13→17:07)
[2018-03-01] MEDS: MULTIVITAMINS,THERAGRAN 1 UDTAB TABLET PO SCH (08:13)
[2018-03-01] MEDS: OXYBUTYNIN CHLORIDE ER 5 MG TAB PO SCH (08:14)
[2018-03-01] MEDS: POTASSIUM CHLORIDE 20 MEQ TAB.PRT.SR PO SCH ×3 (08:15→11:38)
[2018-03-01] MEDS: PANTOPRAZOLE 40 MG TABLET.DR PO SCH (08:15)
[2018-03-01 16:00] VITALS: BP 143/81
--- NOTE | 2018-03-01 18:23 | NUR ---
RN NOTES PT IS LAYING DOWN IN BED, AWAKE AND CONFUSED, SAME BASELINE. PT ON RA, RESPIRATIONS ARE EVEN AND UNLABORED. IV ON RFA INTACT AND RUNNING TKO. ALL MEDS WERE GIVEN ORDERED AND PT NEEDS MET. PT CHANGED THROUGHOUT SHIFT NEEDED AND REPOSITIONED Q2HRS. PT HAS SOFT MITTENS ON FOR SAFETY, PT SHOWS NO SIGNS OF SKIN IRRITATION OR REDUCTION IN CIRCULATION. SAFETY MEASURES ARE IN PLACE, CALL LIGHT IS IN REACH. WILL ENDORSE TO SALESPERSON SEWING MACHINES RN FOR CONTINUITY OF CARE.
--- NOTE | 2018-03-01 19:45 | NUR ---
MS RN NOTE: PATIENT RESTING IN BED, NO ACUTE DISTRESS NOTED. BREATHING EVEN AND UNLABORED, NO SOB NOTED. IV TO RFA IN PLACE. BILATERAL SOFT MITTENS IN PLACE, WITH GOOD CIRCULATION. BED IS LOCKED AND LOWEST POSITION, CALL LIGHT IS WITHIN REACH. WILL CONTINUE TO MONITOR.
[2018-03-01 20:00] VITALS: BP 124/73
[2018-03-01] MEDS: DOCUSATE SODIUM 100 MG CAPSULE PO SCH (21:29)
[2018-03-01] MEDS: DIVALPROEX SODIUM 125 MG TABLET.DR PO SCH (21:29)
--- NOTE | 2018-03-01 21:45 | NUR ---
MS RN NOTE: PATIENT BLOOD SUGAR LEVEL 133 MG/DL, PATIENT TO RECEIVE 2 UNITS OF INSULIN PER SLIDING SCALE. NO S/S OF HYPER/HYPOGLYCEMIA NOTED. WILL CONTINUE TO MONITOR.
--- NOTE | 2018-03-01 23:00 | NUR ---
MS RN NOTE: PATIENT TRYING TO BITE MITTENS TO REMOVE STRAP. 1:1 SITTER NEEDED FOR PATIENT AT BEDSIDE TO CONTINUE TO MONITOR PATIENT FOR SAFETY. SITTER AT BEDSIDE AND MITTENS REMOVED. WILL CONTINUE TO MONITOR.
[2018-03-02] MEDS: PIPERACILLIN /TAZOBACTAM 2.25 G in IV D5W 50 ML IV SCH ×2 (05:41→12:12)
--- NOTE | 2018-03-02 06:12 | NUR ---
MS RN NOTE: PATIENT RESTING IN BED, NO ACUTE DISTRESS NOTED. BREATHING EVEN AND UNLABORED, NO SOB NOTED. IV TO RFA IN PLACE. PATIENT BLOOD SUGAR LEVEL 124 MG/DL, NO INSULIN NEEDED PER SLIDING SCALE. NO S/S OF HYPER/HYPOGLYCEMIA NOTED. SITTER AT BEDSIDE. BED IS LOCKED AND LOWEST POSITION, CALL LIGHT IS WITHIN REACH. WILL ENDORSE TO DAY NURSE TO CONTINUE WITH PLAN OF CARE.
[2018-03-02] MEDS ORDERED: ERGOCALCIFEROL (VITAMIN D 2) 50,000 UNIT CAPSULE PO SCH (06:30)
[2018-03-02] MEDS: BLOOD SUGAR DIAGNOSTIC 1 EACH STRIP IN SCH ×2 (06:30→12:04)
[2018-03-02 07:09] LABS: BASOPHILS % (AUTO) 0.6 % (0.0-2.0); EOSINOPHILS % (AUTO) 3.6 % (0.0-6.0); HEMATOCRIT 34 % (33-45); LYMPHOCYTES # (AUTO) 1.3 /CMM (0.8-4.8); LYMPHOCYTES % (AUTO) 18.4 % (20.0-44.0); MEAN CORPUSCULAR HGB CONC 33 g/dl (31.0-36.0); MEAN CORPUSCULAR VOLUME 79 fL (82-100); MONOCYTES # (AUTO) 0.5 /CMM (0.1-1.30); MONOCYTES % (AUTO) 6.3 % (2.0-12.0); NEUTROPHILS # (AUTO) 5.1 /CMM (1.8-8.9); NEUTROPHILS % (AUTO) 71.1 % (43.0-81.0); PLATELET COUNT (AUTO) 326 /CMM (150-450); RDW COEFFICIENT OF VARIATION 15.1 (11.5-15.0); RED BLOOD CELL COUNT(AUTO) 4.23 MIL/uL (4.0-5.2); WHITE BLOOD COUNT (AUTO) 7.2 K/uL (4.3-11.0)
[2018-03-02 07:24] LABS: CALCIUM, SERUM 9.3 mg/dL (8.5-10.1); CARBON DIOXIDE 27 mmol/L (21-32); CHLORIDE 105 mmol/L (98-107); CREATININE 0.9 mg/dL (0.6-1.3); GLUCOSE 155 mg/dL (74-106); POTASSIUM 3.5 mmol/L (3.5-5.1); SODIUM SERUM 140 mmol/L (136-145); UREA NITROGEN, BLOOD 9 mg/dL (7-18)
[2018-03-02 08:00] VITALS: BP 139/87
--- NOTE | 2018-03-02 08:00 | NUR ---
MS RN OPENING NOTES Patient was seen resting comfortably in bed with no signs or symptoms of acute distress, breathing on room air with no SOB. Patient is AA&Ox2 to person and place but not oriented to time or situation. Peripheral IV in right forearm is running NS at 5 ml/hr TKO. Bed is in low/locked position, two side rails up, call eaton within reach. Sitter is by bedside. Will continue to monitor.
[2018-03-02 08:27] VITALS: BP 139/87
[2018-03-02] MEDS: MEGESTROL ACETATE SUSP 400 MG/10 ML UDC PO SCH (08:27)
[2018-03-02] MEDS: PANTOPRAZOLE 40 MG TABLET.DR PO SCH (08:27)
[2018-03-02] MEDS: OXYBUTYNIN CHLORIDE ER 5 MG TAB PO SCH (08:27)
[2018-03-02] MEDS: ASPIRIN EC 81 MG TABLET.DR PO SCH (08:27)
[2018-03-02] MEDS: METOPROLOL SUCCINATE 25 MG TAB.SR.24H PO SCH (08:27)
[2018-03-02] MEDS: DIVALPROEX SODIUM 125 MG TABLET.DR PO SCH (08:28)
[2018-03-02] MEDS: MULTIVITAMINS,THERAGRAN 1 UDTAB TABLET PO SCH (08:28)
[2018-03-02] MEDS: INSULIN REGULAR, HUMAN 100 UNIT/ML 3 ML VIAL SQ PRN (12:10)
[2018-03-02] MEDS: ALBUTEROL FS 2.5 MG/0.5 ML VIAL.NEB NEB PRN (13:48)
[2018-03-02] MEDS: IPRATROPIUM NEB FS 0.5 MG/2.5 ML AMPUL.NEB NEB PRN (13:48)
--- NOTE | 2018-03-02 15:30 | NUR ---
RN MS NOTES PT IN BED, AWAKE, ALERT, VERBALLY RESPONSIVE, NO COMPLAINT OF PAIN OR ANY DISCOMFORT, NOTED WITH WHEEZING, O2 SAT BETWEEN 98-100% ON ROOM AIR, NO SOB, KEPT HOB ELEVATED, BREATHING TREATMENT GIVEN BY RT, PT IMPROVED, WHEEZING SUBSIDED, PT SEEN BY SPEECH THERAPIST, TOLERATED SWALLOW EVALUATION WELL, DISCHARGE AND MEDICATION INSTRUCTIONS PROVIDED TO PT, VERBALIZED UNDERSTANDING, BELONGINGS ACCOUNTED FOR, FAMILY CARE BOARD AND CARE INFORMED OF PT'S TRANSFER, PICKED UP BY 2 AMBULANCE PERSONNEL, LEFT VIA GUERNEY IN STABLE CONDITION.
== END 2018-03-02 15:28 | disposition home or self-care (01) | DRG 871 ==
LOC: ER 09:20 → TELE 11:45 → MED 17:28
PROVIDERS: ADMIT Nurse Practitioner Acute Care; ATTEND Nurse Practitioner Acute Care
DX: A41.9 Sepsis, unspecified organism (principal); E43 Unspecified severe protein-calorie malnutrition; N17.0 Acute kidney failure with tubular necrosis; R65.21 Severe sepsis with septic shock; G92 Toxic encephalopathy; E11.22 Type 2 diabetes mellitus with diabetic chronic kidney disease; D68.59 Other primary thrombophilia; I50.33 Acute on chronic diastolic (congestive) heart failure; E87.2 Acidosis; I13.0 Hypertensive heart and chronic kidney disease with heart failure and stage 1 through stage 4 chronic kidney disease, or unspecified chronic kidney disease; N18.9 Chronic kidney disease, unspecified; E55.9 Vitamin D deficiency, unspecified; E78.5 Hyperlipidemia, unspecified; E87.6 Hypokalemia; F03.90 Unspecified dementia, unspecified severity, without behavioral disturbance, psychotic disturbance, mood disturbance, and anxiety; G47.00 Insomnia, unspecified; I48.0 Paroxysmal atrial fibrillation; K21.9 Gastro-esophageal reflux disease without esophagitis; Z86.14 Personal history of Methicillin resistant Staphylococcus aureus infection; J32.9 Chronic sinusitis, unspecified; I35.0 Nonrheumatic aortic (valve) stenosis; I34.0 Nonrheumatic mitral (valve) insufficiency; I27.20 Pulmonary hypertension, unspecified; Z95.0 Presence of cardiac pacemaker; M19.90 Unspecified osteoarthritis, unspecified site; E88.09 Other disorders of plasma-protein metabolism, not elsewhere classified; M62.50 Muscle wasting and atrophy, not elsewhere classified, unspecified site; Z68.21 Body mass index [BMI] 21.0-21.9, adult; Z66 Do not resuscitate
CPT/HCPCS: 36415; 36600; 70450-TC; 71045-TC; 80048-TC; 80053-TC; 80061-TC; 80076-TC; 80202-TC; 81000-TC; 82962-TC; 83605-TC; 83735-TC; 84100-TC; 84484-TC; 85025-TC; 85730-TC; 87040-TC; 87081-TC; 87086-TC; 87400; 92611-TC; 93307-TC; 94799-TC; A4216; A4606; C9113; J1815; J2543; J3370; J3475; J3490; J7030; J7040; J7060; Q0177; Z7610

== ENCOUNTER 2018-03-11 22:33 | Inpatient (IN) | payer MEDICARE ==
[~2018-03-11] VITALS: Ht 144.8 cm; Wt 49.0 kg
[~2018-03-11 22:33] MED LIST changes: +ACET-868 PO; -ALPR0.255 PO; -AMLO5TAB7; -ASPI-1169 PO; -ASPI-605; +ATOR10TA PO; -ATOR40TA PO; -ATOR80TA; -ATOR80TA PO; -BENZ-13 PO; -CARV6.252 PO; -DARI7.5T PO; -DIGO125T20 PO; -DIGO250T PO; +DOCU-270 PO; -FURO-144 PO; -FURO40TA5 PO; +GLIM1TAB2 PO; +HYDR-3026 PO; +INSU100V3 SQ; -METO-358 PO; +MULT-447 PO; -OMEP20CA10; -OMEP40CA37 PO; -OXYB10TA4 PO; +OXYB5TAB PO; -OXYB5TAB11 PO; +POLY17PO4 PO; -POTA-10 PO; -TRIA50CA PO; -ZOLP5TAB8 PO
--- NOTE | 2018-03-11 22:40 | NUR ---
PT BBRA, PER EMS PT WAS "TACHYCARDIC/HYPOTENSIVE AT 95/43". PT IS AAOX0. SKIN HOT AND DRY TO TOUCH. RESP SHALLOW AND RAPID, SPO2 90% ON ROOM AIR. PT PLACED ON SIMPLE MASK 6L/M, SPO2 96%. S/S OF DISTRESS NOTED IN PT. PT PLACED ON MONITOR AND POX. PT SAFETY AND COMFORT MEASURES IN PLACE. MD BEDSIDE FOR EVAL.
--- NOTE | 2018-03-11 22:41 | NUR ---
PHLEBOTOMY BEDSIDE FOR BLOOD DRAW.
[2018-03-11] MEDS ORDERED: ACETAMINOPHEN 650 MG/SUPP.RECT RC ONE ×3 (23:00→23:02)
[2018-03-11] MEDS ORDERED: IV NS 0.9% 1,000 ML BAG IV ONE ×2 (23:00→23:30)
[2018-03-11 23:14] LABS: APPEARANCE,URINE CLEAR (CLEAR); BILIRUBIN,URINE NEGATIVE (NEGATIVE); BLOOD, URINE NEGATIVE Ery/uL (NEGATIVE); COLOR,URINE YELLOW (YELLOW); KETONES,URINE NEGATIVE (NEGATIVE); LEUKOCYTE ESTERASE ,URINE NEGATIVE (NEGATIVE); NITRITE, URINE NEGATIVE (NEGATIVE); PROTEIN,URINE NEGATIVE (NEGATIVE); UGLUCOSE NEGATIVE (NEGATIVE); UROBILINOGEN,URINE 0.2 EU/dL (0.2)
[2018-03-11 23:16] LABS: BASOPHILS # (AUTO) 0.2 /CMM (0.0-0.2); BASOPHILS % (AUTO) 1.1 % (0.0-2.0); EOSINOPHILS # (AUTO) 0.1 /CMM (0.0-0.7); EOSINOPHILS % (AUTO) 0.4 % (0.0-6.0); HEMATOCRIT 40 % (33-45); HEMOGLOBIN 12.8 g/dL (11.5-14.8); LYMPHOCYTES # (AUTO) 1.8 /CMM (0.8-4.8); LYMPHOCYTES % (AUTO) 8.4 % (20.0-44.0); MEAN CORPUSCULAR HEMOGLOBIN 26 PG (26.0-33.0); MEAN CORPUSCULAR HGB CONC 32 g/dl (31.0-36.0); MEAN CORPUSCULAR VOLUME 80 fL (82-100); MONOCYTES # (AUTO) 0.4 /CMM (0.1-1.30); NEUTROPHILS # (AUTO) 18.8 /CMM (1.8-8.9); NEUTROPHILS % (AUTO) 88.1 % (43.0-81.0); PLATELET COUNT (AUTO) 581 /CMM (150-450); RDW COEFFICIENT OF VARIATION 15.2 (11.5-15.0); RED BLOOD CELL COUNT(AUTO) 5.01 MIL/uL (4.0-5.2); WHITE BLOOD COUNT (AUTO) 21.3 K/uL (4.3-11.0)
[2018-03-11 23:34] LABS: ALANINE AMINOTRANSFERASE 45 U/L (12-78); ALBUMIN 2.3 g/dL (3.4-5.0); ALKALINE PHOSPHATASE 52 U/L (46-116); ASPARTATE AMINOTRANSFERASE 32 U/L (15-37); BILIRUBIN,DIRECT 0.1 mg/dL (0.0-0.2); BILIRUBIN,TOTAL 0.2 mg/dL (0.2-1.0); CALCIUM, SERUM 10.7 mg/dL (8.5-10.1); CARBON DIOXIDE 29 mmol/L (21-32); CHLORIDE 124 mmol/L (98-107); CREATININE 2.1 mg/dL (0.6-1.3); GLUCOSE 161 mg/dL (74-106); POTASSIUM 4.3 mmol/L (3.5-5.1); TOTAL PROTEIN, SERUM 7.6 g/dL (6.4-8.2); UREA NITROGEN, BLOOD 66 mg/dL (7-18)
[2018-03-11 23:35] LABS: SODIUM SERUM 164 mmol/L (136-145)
[2018-03-11 23:36] LABS: TROPONIN I 0.055 ng/mL (0.00-0.056)
[2018-03-11 23:56] LABS: INR 1.04 (0.87-1.13)
[2018-03-12 00:01] LABS: BAND % (MANUAL) 2 % (0.0-5.0); LYMPHOCYTES % (MANUAL) 4 % (16-48); MONOCYTES % (MANUAL) 1 % (0-11.0); NEUTROPHILS % (MANUAL) 93 (42-76)
--- NOTE | 2018-03-12 00:02 | NUR ---
Note rikki in ED - 03/12/18 at 0007 by JASMINA MULTIPLE ATTEMPTS TO OBTAIN EKG, UNABLE TO DO SO AT THE CURRENT TIME. MD MADE AWARE. WILL CONTINUE TO MONITOR PT AND RE-ATTEMPT EKG IN A LATER TIME.
[2018-03-12] MEDS ORDERED: IV D5/0.45 NACL 1,000 ML IV PRN (01:00)
[2018-03-12] MEDS ORDERED: DEXTROSE 50%-WATER 50 ML DISP.SYRIN IV PRN ×2 (01:00→01:15)
[2018-03-12] MEDS ORDERED: ACETAMINOPHEN 650 MG/SUPP.RECT RC PRN ×2 (01:00→01:15)
[2018-03-12] MEDS ORDERED: MORPHINE SULFATE INJ 2 MG/ML DISP.SYRIN IV PRN (01:00)
[2018-03-12] MEDS ORDERED: ONDANSETRON HCL/PF 4 MG/2 ML VIAL IVP PRN ×2 (01:00→01:15)
[2018-03-12] MEDS ORDERED: INSULIN REGULAR, HUMAN 100 UNIT/ML 3 ML VIAL SQ PRN ×2 (01:00→01:15)
[2018-03-12] MEDS ORDERED: ALBUTEROL FS 2.5 MG/3 ML VIAL.NEB NEB PRN ×2 (01:00→01:15)
--- NOTE | 2018-03-12 01:02 | NUR ---
REPORT GIVEN TO CREDIT CONTROL CLERK JV FOR MANDEEP.
[2018-03-12] MEDS ORDERED: MORPHINE SULFATE INJ 4 MG/ML DISP.SYRIN IV PRN (01:15)
[2018-03-12 01:35] VITALS: BP 118/64
--- NOTE | 2018-03-12 01:35 | NUR ---
AD CLERK NOTES RECEIVED PT FROM ER, TRANSFERRED TO BED SAFELY, PT IS OBTUNDED, NO VERBAL RESPONSE, WITHDRAWS FROM PAINFUL STIMULI. ON 02 @ 6LPM VIA MASK , TACHYPNEIC AT THIS TIME, RR: 38, HR : 108, AVNI, CLEANING ASSOCIATE MADE AWARE. NO S/S OF PAIN OR DISCOMFORT AT THIS TIME. IV SITE ON LFA G#18 AND RAC G#18 INTACT AND PATENT, IVF INFUSING WELL, CONNECTED TO RAC . NO S/S OF HYPO/ HYPERGLYCEMIA NOTED AT THIS TIME, COMPLETE BODY CHECK DONE. MEPILEX APPLIED TO BONY AREAS. SAFETY PRECAUTION AND ASPIRATION PRECAUTION OBSERVED, ALL NEEDS ATTENDED AND MET . CALL LIGHT WITHIN REACH . WILL CONT TO MONITOR.
--- NOTE | 2018-03-12 01:50 | NUR ---
PT MoFIB 137 ON TELE MONITOR, TACHYPNEIC WITH RR : 38, ON O2 @ 6LPM VIA MASK WITH 97 % 02 SAT, STILL NON VERBALLY RESPONSIVE AND OBTUNDED , PLACED A CALL TO DR. JUAREZ AND INFORMED REGARDING PT'S CONDITION , MD WITH NNO AT THIS TIME, AVNI CHARGE NURSE AWARE. ALSO PT WITH POLST: DNR/ DNI , INFORMED DR. LARRY MD WITH ORDER FOR DNR/DNI, WITNESSED AND VERIFIED WITH TERRY HOLLY RN.NOTED AND CARRIED OUT.
[2018-03-12] MEDS: IV D5/0.45 NACL 1,000 ML IV PRN ×2 (01:59→16:00)
[2018-03-12 02:00] VITALS: BP 118/64
[2018-03-12] MEDS ORDERED: VANCOMYCIN 1 GM in IV D5W 250 ML IV SCH (02:00)
[2018-03-12] MEDS ORDERED: VANCOMYCIN 1 GM VIAL ONE (02:26)
[2018-03-12 04:00] VITALS: BP 96/55
--- NOTE | 2018-03-12 04:29 | NUR ---
PT ABLE TO OPEN HER EYES AT THIS TIME, RESPONSIVE TO TOUCH AND VERBAL STIMULI, REMAINS A/O X 1. STILL ON O2 @ 6LPM VIA MASK , 02 SAT IS 100 % AT THIS TIME. NO S/S OF PAIN OR DISCOMFORT AT THIS TIME. SAFETY PRECAUTIONS OBSERVED. WILL CONT TO MONITOR.
[2018-03-12] MEDS ORDERED: PIPERACILLIN /TAZOBACTAM 2.25 G VIAL IV ONE (05:51)
[2018-03-12] MEDS ORDERED: PIPERACILLIN /TAZOBACTAM 2.25 G in IV D5W 50 ML IV SCH ×4 (06:00)
[2018-03-12] MEDS ORDERED: BLOOD SUGAR DIAGNOSTIC 1 EACH STRIP IN SCH (06:00)
[2018-03-12] MEDS: BLOOD SUGAR DIAGNOSTIC 1 EACH STRIP IN SCH ×3 (06:05→18:07)
[2018-03-12 06:39] LABS: TROPONIN I 0.041 ng/mL (0.00-0.056)
[2018-03-12 06:46] LABS: CHOLESTEROL 147 mg/dL (<200); HDL CHOLESTEROL 22 mg/dL (40-60); LDL 106 mg/dL (0-99); THYROID STIMULATING HORMONE 1.138 uIU/mL (0.358-3.74); TRIGLYCERIDES 154 mg/dL (30-150)
[2018-03-12 06:47] LABS: ALANINE AMINOTRANSFERASE 34 U/L (12-78); ALBUMIN 1.9 g/dL (3.4-5.0); ALKALINE PHOSPHATASE 44 U/L (46-116); ASPARTATE AMINOTRANSFERASE 31 U/L (15-37); B-TYPE NATRIURETIC PEPTIDE 999 PG/ML (0-125); BILIRUBIN,TOTAL 0.2 mg/dL (0.2-1.0); CALCIUM, SERUM 9.2 mg/dL (8.5-10.1); CARBON DIOXIDE 30 mmol/L (21-32); CREATININE 1.8 mg/dL (0.6-1.3); GLUCOSE 164 mg/dL (74-106); MAGNESIUM 2.4 mg/dL (1.8-2.4); PHOSPHORUS 4.7 mg/dL (2.5-4.9); POTASSIUM 4.1 mmol/L (3.5-5.1); TOTAL PROTEIN, SERUM 6.2 g/dL (6.4-8.2); UREA NITROGEN, BLOOD 58 mg/dL (7-18)
[2018-03-12 06:50] LABS: CHLORIDE 127 mmol/L (98-107); SODIUM SERUM 166 mmol/L (136-145)
[2018-03-12] MEDS ORDERED: PIPERACILLIN /TAZOBACTAM 2.25 G in IV D5W 100 ML IV SCH (06:54)
[2018-03-12] MEDS ORDERED: FENTANYL PF 100MCG/2ML AMPUL IV PRN (07:00)
[2018-03-12] MEDS ORDERED: FEE PK DOSING 1 MIN EA MC ONE (07:02)
[2018-03-12 07:03] LABS: BASOPHILS % (AUTO) 0.2 % (0.0-2.0); EOSINOPHILS # (AUTO) 0.1 /CMM (0.0-0.7); EOSINOPHILS % (AUTO) 0.4 % (0.0-6.0); HEMATOCRIT 34 % (33-45); HEMOGLOBIN 10.9 g/dL (11.5-14.8); LYMPHOCYTES # (AUTO) 1.4 /CMM (0.8-4.8); LYMPHOCYTES % (AUTO) 6.2 % (20.0-44.0); MEAN CORPUSCULAR HEMOGLOBIN 26 PG (26.0-33.0); MEAN CORPUSCULAR HGB CONC 32 g/dl (31.0-36.0); MEAN CORPUSCULAR VOLUME 81 fL (82-100); MONOCYTES # (AUTO) 0.8 /CMM (0.1-1.30); MONOCYTES % (AUTO) 3.3 % (2.0-12.0); NEUTROPHILS # (AUTO) 20.5 /CMM (1.8-8.9); NEUTROPHILS % (AUTO) 89.9 % (43.0-81.0); PLATELET COUNT (AUTO) 413 /CMM (150-450); RDW COEFFICIENT OF VARIATION 15.2 (11.5-15.0); RED BLOOD CELL COUNT(AUTO) 4.18 MIL/uL (4.0-5.2); WHITE BLOOD COUNT (AUTO) 22.8 K/uL (4.3-11.0)
--- NOTE | 2018-03-12 07:15 | NUR ---
TECHNICIAN HELPER INSTRUMENT NOTES PT IN BED, A/O X 1, OPENS EYES TO VERBAL STIMULI. ON 02 @ 6LPM VIA MASK , 02 SAT IS 98 % AT THIS TIME. NO S/S OF PAIN OR DISCOMFORT AT THIS TIME. IV SITE ON LFA G#18 AND RAC G#18 INTACT AND PATENT, IVF INFUSING WELL, CONNECTED TO RAC . NO S/S OF HYPO/ HYPERGLYCEMIA NOTED AT THIS TIME. ALL DUE MEDS GIVEN. SAFETY PRECAUTION AND ASPIRATION PRECAUTION OBSERVED, ALL NEEDS ATTENDED AND MET. CALL LIGHT WITHIN REACH. ENDORSED TO NEXT SHIFT FOR MANDEEP.
--- NOTE | 2018-03-12 07:15 | NUR ---
RN OPENING NOTES PATIENT IN BED EYES CLOSED, OPENS EYES WHEN NAME IS CALLED AND TOUCHED. ON 02 @ 6LPM VIA NC. NO ACUTE DISTRESS NOTED. IV ACCESS PATENT AND INTACT, NO REDNESS OR SWELLING NOTED. SAFETY MEASURES IN PLACE. CALL LIGHT WITHIN REACH. WILL CONTINUE TO MONITOR ACCORDINGLY.
--- NOTE | 2018-03-12 07:20 | NUR ---
RECEIVED A CALL FROM LAB REGARDING PT'S NA: 166 AND CL : 127 , ENDORSED TO LUNA LEDBETTER ACCORDINGLY.
[2018-03-12 08:00] VITALS: BP 105/63
[2018-03-12] MEDS ORDERED: PANTOPRAZOLE 40 MG VIAL IV SCH ×2 (09:00)
--- NOTE | 2018-03-12 09:03 | NUR ---
RN NOTES SEEN AND EVALUATED BY DR BAHENA WITH NEW ORDERS MADE, NOTED AND CARRIED OUT.
--- NOTE | 2018-03-12 10:40 | NUR ---
RN NOTES SEEN AND EVALUATED BY DEMAR BHATT WITH NEW ORDERS MADE, NOTED AND CARRIED OUT. AWARE OF NA AND CL LEVEL.
[2018-03-12] MEDS: PIPERACILLIN /TAZOBACTAM 2.25 G in IV D5W 100 ML IV SCH ×2 (12:02→17:16)
[2018-03-12 16:00] VITALS: BP 120/88
--- NOTE | 2018-03-12 19:00 | NUR ---
RN CLOSING NOTES PATIENT IN BED OBTUNDED, BLINKS EYES. ON 02 @ 6LPM VIA NC. NO ACUTE DISTRESS NOTED. IV ACCESS PATENT AND INTACT, NO REDNESS OR SWELLING NOTED. DUE MEDICATIONS GIVEN, NO ASE NOTED. NEEDS ATTENDED AND ANTICIPATED. SAFETY MEASURES IN PLACE. CALL LIGHT WITHIN REACH.BEING EVALUATED BY HOSPICE NURSE AT THE MOMENT. ENDORSED TO NIGHT NURSE FOR CONTINUITY OF CARE.
[2018-03-12 20:00] VITALS: BP 137/68
[2018-03-13] MEDS ORDERED: VANCOMYCIN 500 MG in IV D5W 100 ML IV SCH (03:00)
== END 2018-03-12 21:42 | disposition hospice, home (50) | DRG 871 ==
LOC: ER 22:34 → TELE 03-12 01:21 → MED 03-12 09:10
PROVIDERS: ADMIT Internal Medicine; ATTEND Internal Medicine
DX: A41.9 Sepsis, unspecified organism (principal); E43 Unspecified severe protein-calorie malnutrition; N17.0 Acute kidney failure with tubular necrosis; E87.0 Hyperosmolality and hypernatremia; G92 Toxic encephalopathy; L89.150 Pressure ulcer of sacral region, unstageable; E11.9 Type 2 diabetes mellitus without complications; I48.91 Unspecified atrial fibrillation; E86.0 Dehydration; E86.1 Hypovolemia; F03.90 Unspecified dementia, unspecified severity, without behavioral disturbance, psychotic disturbance, mood disturbance, and anxiety; I10 Essential (primary) hypertension; K21.9 Gastro-esophageal reflux disease without esophagitis; Z66 Do not resuscitate; I25.10 Atherosclerotic heart disease of native coronary artery without angina pectoris; R65.20 Severe sepsis without septic shock; Z95.0 Presence of cardiac pacemaker; M19.90 Unspecified osteoarthritis, unspecified site; Z68.23 Body mass index [BMI] 23.0-23.9, adult; Z79.84 Long term (current) use of oral hypoglycemic drugs; Z86.14 Personal history of Methicillin resistant Staphylococcus aureus infection; Z96.659 Presence of unspecified artificial knee joint
CPT/HCPCS: 36415; 71045-TC; 80048-TC; 80053-TC; 80061-TC; 80076-TC; 81000-TC; 82962-TC; 83605-TC; 83735-TC; 83880; 84100-TC; 84443-TC; 84484-TC; 85025-TC; 85730-TC; 87040-TC; 87081-TC; 87086-TC; 94799-TC; A4606; C9113; J1815; J2543; J3370; J3490; J7030; J7040; J7060; Z7610

== ENCOUNTER 2018-03-12 21:44 | Inpatient (IN) | payer OTHER ==
[2018-03-12 20:00] VITALS: BP 137/68
[2018-03-12] MEDS ORDERED: LORAZEPAM INJ 2 MG/ML VIAL IV PRN (22:00)
[2018-03-12] MEDS ORDERED: MORPHINE SULFATE INJ 4 MG/ML DISP.SYRIN IV PRN (22:00)
[2018-03-12] MEDS ORDERED: ONDANSETRON HCL/PF 4 MG/2 ML VIAL IV PRN (22:00)
[2018-03-12] MEDS ORDERED: ACETAMINOPHEN 650 MG/SUPP.RECT RC PRN (22:00)
[2018-03-12] MEDS ORDERED: DOCUSATE SODIUM 100 MG CAPSULE PO PRN (22:00)
[2018-03-12] MEDS ORDERED: BISACODYL SUPP (10 MG) 10 MG/SUPP.RECT SUPP.RECT RC PRN (22:00)
[2018-03-12] MEDS ORDERED: ACETAMINOPHEN 325 MG TABLET PO PRN (22:00)
--- NOTE | 2018-03-13 07:10 | NUR ---
RN NOTES PATIENT IN BED EYES OPEN, EYES BLINKS. ON O2 VIA NC. NO ACUTE DISTRESS NOTED. BREATHING UNLABORED. DENIED ANY PAIN. SAFETY MEASURES IN PLACE. CALL LIGHT WITHIN REACH. WILL CONTINUE TO MONITOR ACCORDINGLY.
--- NOTE | 2018-03-13 07:39 | NUR ---
RN NOTES RECEIVED NEW ORDERS FROM JOSÉ MEDINA TO CHANGE DIET TO NPO. NOTED AND CARRIED OUT.
[2018-03-13 08:00] VITALS: BP 147/94
[2018-03-13 16:00] VITALS: BP 146/74
[2018-03-13] MEDS ORDERED: BACI/NEOM/POLY B OINT PKT 1 UDPKT PACKET TP SCH (17:00)
[2018-03-13] MEDS: NEOMY SULF/BACITRAC ZN/POLY 15 GM TUBE TP SCH (17:36)
--- NOTE | 2018-03-13 18:26 | NUR ---
RN NOTES PATIENT IN BED AWAKE, BLINKS EYES. ANSWERED "OK" WHEN ASKED IF SHE'S OK. NO ACUTE DISTRESS NOTED. BREATHING UNLABORED. IV ACCESS PATENT AND INTACT, NO REDNESS OR SWELLING NOTED. DUE MEDICATION GIVEN, NO ASE NOTED. CHENEY CATHETER IN PLACE, DRAINING WELL. NEEDS ATTENDED AND ANTICIPATED. KEPT CLEAN, DRY AND COMFORTABLE. SAFETY MEASURES IN PLACE. CALL LIGHT WITHIN REACH. WILL CONTINUE TO MONITOR ACCORDINGLY. WILL ENDORSE TO NIGHT NURSE FOR CONTINUITY OF CARE.
--- NOTE | 2018-03-13 19:50 | NUR ---
RN NOTE: PATIENT RESTING IN BED, NO ACUTE DISTRESS NOTED. BREATHING EVEN AND UNLABORED, NO SOB NOTED. IV TO RIGHT WRIST IN PLACE. CHENEY CATHETER IN PLACE, EMPTY AT THIS TIME. BED LOCKED AND IN LOWEST POSITION, CALL LIGHT IN REACH. WILL CONTINUE TO MONITOR.
[2018-03-13 20:00] VITALS: BP 145/78
--- NOTE | 2018-03-14 03:30 | NUR ---
RN NOTE: PATIENT RESTING IN BED, NO ACUTE DISTRESS NOTED. BREATHING EVEN AND UNLABORED, NO SOB NOTE. BED LOCKED AND IN LOWEST POSITION, CALL LIGHT IN REACH. WILL CONTINUE TO MONITOR.
--- NOTE | 2018-03-14 06:20 | NUR ---
RN NOTE: PATIENT RESTING IN BED, NO ACUTE DISTRESS NOTED. BREATHING EVEN AND UNLABORED, NO SOB NOTED. IV TO RIGHT WRIST IN PLACE. CHENEY CATHETER IN PLACE, DRAINED 400ML OF CLEAR YELLOW URINE. BED LOCKED AND IN LOWEST POSITION, CALL LIGHT IN REACH. WILL ENDORSE TO DAY NURSE TO CONTINUE WITH PLAN OF CARE.
--- NOTE | 2018-03-14 07:30 | NUR ---
RN NOTES PT IN BED, AWAKE, MAKES EYE CONTACT AND TURNS HEAD WHEN NAME IS CALLED, NOT IN DISTRESS, NO FACIAL GRIMACING OR MOANING, SKIN IS WARM TO TOUCH, KEPT BOTH HEELS OFFLOADED, KEPT WARM AND COMFORTABLE.
[2018-03-14 08:00] VITALS: BP 122/74
[2018-03-14] MEDS: NEOMY SULF/BACITRAC ZN/POLY 15 GM TUBE TP SCH (09:24)
--- NOTE | 2018-03-14 09:30 | NUR ---
RN NOTES PT IN BED, AWAKE, NOTED WITH ANXIETY AND INCREASED HEART RATE, ATIVAN GIVEN ORDERED, KEPT COMFORTABLE IN BED, REPOSITIONED FOR COMFORT.
--- NOTE | 2018-03-14 11:55 | NUR ---
RN MS NOTES PT IN BED, EYES OPEN, NON VERBAL, NOTED WITH INCREASED RESPIRATION RATE OF 32 BPM, NOTED WITH FACIAL GRIMACING, MORPHINE IV GIVEN ORDERED, REPOSITIONED FOR COMFORT, KEPT BOTH HEELS ELEVATED, KEPT WARM AND COMFORTABLE.
--- NOTE | 2018-03-14 13:09 | NUR ---
RN NOTES PT IN BED, SLEEPING COMFORTABLY, BREATHING PATTERN NORMAL, NO SIGN OF PAIN OR DISCOMFORT, NO FACIAL GRIMACING OR MOANING, KEPT STRESS ANALYST BED.
--- NOTE | 2018-03-14 16:30 | NUR ---
RN NOTES PT IN BED, ASLEEP, EASY TO AROUSE, NOT IN DISTRESS, BREATHING PATTERN NORMAL AND NOT LABORED, NO FACIAL GRIMACING OR MOANING, PT'S SON [place] WANTS PT TO BE DISCHARGED BACK TO BOARD AND CARE, DISCHARGE ORDER GIVEN BY DR. TAYLOR, DISCHARGE AND MEDICATION INSTRUCTIONS PROVIDED TO SON, VERBALIZED UNDERSTANDING, PT HAS NO BELONGINGS, CAYLA PATE COMMUNICATED WITH BOARD AND CARE TO ARRANGE DISCHARGE AND TRANSPORTATION, PICKED UP BY 2 AMBULANCE PERSONNEL, [facility].
== END 2018-03-14 16:27 | disposition hospice, home (50) | DRG 871 ==
LOC: HOSPICE 21:44
PROVIDERS: ADMIT Family Medicine; ATTEND Family Medicine
DX: A41.9 Sepsis, unspecified organism (principal); E43 Unspecified severe protein-calorie malnutrition; J96.91 Respiratory failure, unspecified with hypoxia; N17.0 Acute kidney failure with tubular necrosis; E87.0 Hyperosmolality and hypernatremia; G93.41 Metabolic encephalopathy; I48.91 Unspecified atrial fibrillation; E11.9 Type 2 diabetes mellitus without complications; E86.0 Dehydration; F03.90 Unspecified dementia, unspecified severity, without behavioral disturbance, psychotic disturbance, mood disturbance, and anxiety; I10 Essential (primary) hypertension; I25.10 Atherosclerotic heart disease of native coronary artery without angina pectoris; Z66 Do not resuscitate; Z83.3 Family history of diabetes mellitus; Z86.14 Personal history of Methicillin resistant Staphylococcus aureus infection; R65.20 Severe sepsis without septic shock; Z95.0 Presence of cardiac pacemaker; M19.90 Unspecified osteoarthritis, unspecified site; L98.8 Other specified disorders of the skin and subcutaneous tissue; S80.12XA Contusion of left lower leg, initial encounter; X58.XXXA Exposure to other specified factors, initial encounter; Y93.9 Activity, unspecified; Y92.89 Other specified places as the place of occurrence of the external cause; Z68.23 Body mass index [BMI] 23.0-23.9, adult; Z79.84 Long term (current) use of oral hypoglycemic drugs; Z96.659 Presence of unspecified artificial knee joint
CPT/HCPCS: J2060; J2270; Z7610